=== PATIENT | female | born 1970 | race Caucasian/White ===

== ENCOUNTER 2017-08-01 09:48 | Inpatient (IN) | payer BC, MEDICAID ==
[~2017-08-01] VITALS: Ht 157.5 cm; Wt 47.0 kg
[2017-08-01] MEDS ORDERED: AMBI12.52 PO (10:01)
[2017-08-01] MEDS ORDERED: ALBU17IN2 INH (10:01)
[2017-08-01] MEDS ORDERED: VICO5TAB16 PO (10:01)
[2017-08-01] MEDS ORDERED: ZOLO100T PO (10:01)
[2017-08-01] MEDS ORDERED: ZYRT10CA PO (10:01)
[2017-08-01] MEDS ORDERED: SERO1TAB2 PO (10:01)
[2017-08-01] MEDS ORDERED: PRIL10PO PO (10:01)
[2017-08-01] MEDS ORDERED: SUCR1TA PO (10:01)
[2017-08-01] MEDS ORDERED: HYDR-3363 PO (10:01)
[2017-08-01] MEDS ORDERED: SERO50TA PO (11:55)
[2017-08-01] MEDS ORDERED: FERR1TAB8 PO (11:55)
[2017-08-01] MEDS ORDERED: OMEP20CA3 PO (11:55)
[2017-08-01] MEDS ORDERED: HYDR-3291 PO (11:55)
[2017-08-01] MEDS ORDERED: HYDR-3713 PO (11:55)
[2017-08-01] MEDS ORDERED: MOM 30ML SUSPENSION UDC PO PRN (12:45)
[2017-08-01] MEDS ORDERED: traZODone 50 MG TAB PO PRN (12:45)
[2017-08-01] MEDS ORDERED: MAALOX 30 ML SUSP *UDC PO PRN (12:45)
[2017-08-01] MEDS ORDERED: ACETAMINOPHEN TAB 650MG DOSE (2X325MG) PO PRN (12:45)
[2017-08-01 14:29] VITALS: BP 111/68
[2017-08-01] MEDS: CETIRIZINE (ZyrTEC) 10 MG TAB PO SCH (16:08)
[2017-08-01] MEDS: NORCO, ANEXSIA 5/325MG TABLET (HYDROcodone/ACETAMINOPHEN) PO PRN ×2 (17:16→23:14)
[2017-08-01 18:00] VITALS: BP 97/51
[2017-08-01] MEDS: FERROUS SULFATE 325MG TAB PO SCH (21:36)
[2017-08-01] MEDS: QUEtiapine FUMARATE 100 MG TAB PO SCH (23:14)
[2017-08-01] MEDS: zolPIDEM CR 6.25MG TABLET (AMBIEN CR) PO SCH (23:14)
[2017-08-02] MEDS: NORCO, ANEXSIA 5/325MG TABLET (HYDROcodone/ACETAMINOPHEN) PO PRN ×3 (06:18→18:23)
[2017-08-02 06:53] VITALS: BP 91/50
[2017-08-02] MEDS: QUEtiapine FUMARATE 50 MG TAB PO SCH (08:17)
[2017-08-02] MEDS: SERTRALINE 100 MG TAB PO SCH (08:17)
[2017-08-02] MEDS: OMEPRAZOLE 20 MG CAP PO SCH (08:17)
[2017-08-02] MEDS: FERROUS SULFATE 325MG TAB PO SCH ×2 (08:18→20:11)
[2017-08-02] MEDS: hydrOXYzine 25 MG TAB PO PRN ×4 (08:18→20:11)
[2017-08-02] MEDS: CETIRIZINE (ZyrTEC) 10 MG TAB PO SCH (08:18)
[2017-08-02] MEDS ORDERED: SERTRALINE HCL 25 MG TABLET PO SCH (09:00)
[2017-08-02] MEDS ORDERED: SERTRALINE HCL 50 MG TAB PO SCH (09:00)
--- NOTE | 2017-08-02 10:22 | HPEPDOC ---
[facility] Medical History & Physical Date of Admission Aug 01, 2017 History and Physical PCP: Dr Hugo DEGROOT ATTENDING: Dr. Pawan Victor HPI: 47yoF transferred from [facility] admitted to [facility] for unspecified depressive disorder, being medically examined today. Patient is a poor historian with rambling and tangential speech. Pt has G tube, is on tube feeds. Apparently was recently admitted to SNF x 10 days, discharged 2 days prior to this admission. As per [facility] records, it was unclear if pt had been taking her feedings recently. Denies any fevers, chills, weakness, fatigue, BARROSO, CP, SOB, cough, palpitations, abdominal pain, N/V/D or changes in bowel or bladder habits. PMHx: Asthma Depression Anxiety Bipolar disorder BPD History of SI Self-mutilation PTSD agoraphobia Insomnia Chronic pain GERD Iron deficiency anemia Anorexia/cachexia/feeding tube Substance use Edentulous Td within 5 years as per [facility] records. H/O abnormal TFT. Nml Cortrosyn stim test. PSHX: History of gastric bypass 2014. Dr Sequeira. Developed loss of appetite and inability to eat. EGD 06/09 Gastritis. 2 G-tube 07/10 ORIF hand SOCHX: Resides in: [facility] Marital Status: Significant other Kids: 3 Employment: Unemployed Tobacco use: Denies ETOH: Patient states "I don't know, I don't remember" Illicit Drugs: Patient states "apparently cocaine, I don't know. I've been clean for 10 years." IV Drug Use: Denies Tattoos done unprofessionally: Denies FAMHX: Mother: Alive, well Father: Unknown Siblings: One sister Alive, unknown Children: Alive, well Unexpected deaths due to medical reasons: None. ROS: As noted in HPI, otherwise 11pt ROS of systems reviewed and remarkable only for LMP unknown. PE: GEN: 47 yo F, appears older than age. Thin appearing, unkept. No acute distress. Alert and oriented x 3. Rambling, tangential speech. HEENT: Normocephalic, atraumatic. Pupils are equal, round, and reactive to light. Extraocular movements are intact. No nystagmus appreciated. Sclera are nonicteric. Conjunctiva without injection. Nose midline. Nasal turbinates without bogginess. EACs both patent BL. TMs both visualized and clarke with good cone of light, no bulging or erythema. No facial asymmetry. Moist mucous membranes. Edentulous. Pharynx pink and moist, no cobblestoning. Neck supple, trachea midline. No lymphadenopathy or thyromegaly appreciated. CHEST: Regular rate and rhythm, +S1, +S2 LUNGS: Clear to auscultation bilaterally. No wheezes, rales, or rhonchi. Breathing appears symmetric and easy. Patient is speaking in full sentences. No accessory muscle use. ABD: Flat, soft, non-tender, non-distended. +Bowel sounds throughout. No rebound or guarding. No costovertebral angle tenderness. G-tube present. EXT: Pulses 2+ bilaterally dorsalis pedis and radial. No lower extremity edema appreciated. SKIN: [place], dry, warm. Capillary refill <2sec. No rashes. Superficial lacerations are noted to the right wrist. There is no drainage or erythema around G tube site(pt states she applies Bactroban if needed). NEURO: Alert and oriented x 3. Cranial nerves III-XII are intact. No focal deficits appreciated. [facility] Hcg neg LA 1.2 Mag 1.9 Phos 4.9 WBC 6.8 Hgb 9.8 Hct 30.2 Plt 468 Gluc 79 BUN 7 Scr 0.36 Na 136 K 3.6 Cl 98 AST 47 ALT 23 RPR non reactive TSH 0.992 UA unremarkable EKG: ST 109bpm. CXR NAD TOXICOLOGY: remarkable for cocaine, opiates, ETOH 0.161. A&P: 47yoF transferred from [facility] admitted to [facility] for unspecified depressive disorder 1. Psych. Plan per Psychiatry. EKG on file. 2. History of bariatric surgery/Cachexia/poor nutrition/G-tube. Request daily weights. Monitor intake/output. Request nutrition consult. Continue with Jevity as per previous recommendations pending nutrition consult. Feedings are monitored by staff. 3. GERD. Continue PPI. 4. Follow up with PCP on discharge. 5. Substance use. Per psychiatry. 6. Superficial lacerations right wrist. Dry dressing. Apply Bactroban twice a day. Monitor. 7. Iron deficiency anemia. Continue iron supplement. Recheck CBC. 8. Chronic pain. Continue hydrocodone. 9. Allergic rhinitis. Continue Zyrtec 10 mg daily. 10. Asthma. Continue albuterol 2 puffs every 4 hours as needed. 11. Abnormal LFT. Recheck CMP. 12. Staff member Samia present throughout exam. Vital Signs Vital Signs Date Time Temp Pulse Resp B/P (MAP) Pulse Ox O2 Delivery O2 Flow Rate FiO2 08/02/17 08:42 Room Air 08/02/17 06:53 97.7 85 16 91/50 (64) 08/01/17 14:29 97 Home Medications Scheduled Cetirizine HCl (Zyrtec Allergy) 10 Mg Cap, 10 MG PO DAILY Ferrous Sulfate (Ferrous Sulfate) 325 Mg Tab, 325 MG PO BID Hydrocortisone Base (Hydrocortisone) 10 Mg Tab, 10 MG PO BID Omeprazole (Omeprazole) 20 Mg Cap, 40 MG PO DAILY Quetiapine Fumarate (Seroquel) 300 Mg Tab, 300 MG PO QHS Quetiapine Fumerate (Seroquel) 50 Mg Tab, 50 MG PO QAM Sertraline Hcl (Zoloft) 100 Mg Tab, 100 MG PO DAILY Scheduled PRN Acetaminophen/Hydrocodone (Hydrocodone/Acetaminophen 5-325 mg) 1 Tab Tab, 1 TAB PO Q6H PRN for PAIN MDD 4 Albuterol Sulfate (Proventil Hfa) 167 Puff/6.7 Gm Aers, 2 PUFFS INH Q4HP PRN for SHORTNESS OF BREATH Hydroxyzine HCl (Hydroxyzine HCl) 25 Mg Tab, 25 MG PO Q6H PRN for ANXIETY Zolpidem Tartrate (Ambien Cr) 12.5 Mg Tab, 12.5 MG PO QHS PRN for INSOMNIA Allergies Coded Allergies: No Known Allergies (Unverified , 08/01/17) Opal Moses Aug 02, 2017 10:22
[2017-08-02] MEDS: MUPIROCIN 2% OINT 22 GM TUBE TOP PRN (12:53)
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
[2017-08-02 18:00] VITALS: BP 83/51
[2017-08-02] MEDS: QUEtiapine FUMARATE 100 MG TAB PO SCH (22:38)
[2017-08-03] MEDS: zolPIDEM CR 6.25MG TABLET (AMBIEN CR) PO SCH ×2 (00:42→22:17)
[2017-08-03] MEDS: NORCO, ANEXSIA 5/325MG TABLET (HYDROcodone/ACETAMINOPHEN) PO PRN ×4 (00:43→20:05)
[2017-08-03 06:00] VITALS: BP 95/64
[2017-08-03] MEDS: QUEtiapine FUMARATE 50 MG TAB PO SCH (08:17)
[2017-08-03] MEDS: hydrOXYzine 25 MG TAB PO PRN ×3 (08:17→18:45)
[2017-08-03] MEDS: SERTRALINE 100 MG TAB PO SCH (08:18)
[2017-08-03] MEDS: FERROUS SULFATE 325MG TAB PO SCH ×2 (08:18→20:05)
[2017-08-03] MEDS: OMEPRAZOLE 20 MG CAP PO SCH (08:18)
[2017-08-03] MEDS: CETIRIZINE (ZyrTEC) 10 MG TAB PO SCH (08:19)
[2017-08-03 08:31] LABS: MEAN CORPUSCULAR HEMOGLOBIN 28.7 pg (27.0-33.0); MEAN CORPUSCULAR HGB CONC 31.6 g/dl (32.0-36.5); MEAN CORPUSCULAR VOLUME 90.8 fl (80.0-96.0); RED CELL DISTRIBUTION WIDTH 15.9 % (11.5-14.5); WHITE BLOOD COUNT 5.8 10^3/uL (4.0-10.0)
[2017-08-03 09:05] LABS: ALBUMIN 2.9 GM/DL (3.2-5.2); ALBUMIN/GLOBULIN RATIO 0.66 (1.00-1.93); ALKALINE PHOSPHATASE 174 U/L (45-117); ALT/SGPT 25 U/L (12-78); ANION GAP 6 MEQ/L (8-16); AST/SGOT 36 U/L (15-37); BILIRUBIN,TOTAL 0.2 MG/DL (0.2-1.0); BLOOD UREA NITROGEN 12 MG/DL (7-18); CARBON DIOXIDE LEVEL 28 MEQ/L (21-32); CHLORIDE LEVEL 108 MEQ/L (98-107); CREATININE FOR GFR 0.38 MG/DL (0.55-1.02); GLOMERULAR FILTRATION RATE > 60.0 (>58); GLUCOSE, FASTING 88 MG/DL (70-105); MAGNESIUM LEVEL 1.8 MG/DL (1.8-2.4); PHOSPHORUS LEVEL 4.1 MG/DL (2.5-4.9); POTASSIUM SERUM 3.4 MEQ/L (3.5-5.1); SODIUM LEVEL 142 MEQ/L (136-145); TOTAL PROTEIN 7.3 GM/DL (6.4-8.2)
[2017-08-03] MEDS ORDERED: POTASSIUM CHLORIDE 10 MEQ SR TABLET PO ONE (11:00)
[2017-08-03 11:18] LABS: PERCENT SATURATION 29.2 % (13.2-45.0)
[2017-08-03 11:29] LABS: FOLATE 17.5 NG/ML (>5.4)
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
[2017-08-03] MEDS: MUPIROCIN 2% OINT 22 GM TUBE TOP PRN (17:04)
[2017-08-03 18:00] VITALS: BP 92/54
[2017-08-03] MEDS: QUEtiapine FUMARATE 100 MG TAB PO SCH (22:16)
[2017-08-04] MEDS: NORCO, ANEXSIA 5/325MG TABLET (HYDROcodone/ACETAMINOPHEN) PO PRN ×2 (02:21→08:47)
[2017-08-04 06:32] VITALS: BP 101/58
[2017-08-04 08:00] LABS: ANION GAP 7 MEQ/L (8-16); BLOOD UREA NITROGEN 11 MG/DL (7-18); CALCIUM LEVEL 8.3 MG/DL (8.5-10.1); CARBON DIOXIDE LEVEL 27 MEQ/L (21-32); CHLORIDE LEVEL 109 MEQ/L (98-107); CREATININE FOR GFR 0.35 MG/DL (0.55-1.02); GLOMERULAR FILTRATION RATE > 60.0 (>58); GLUCOSE, FASTING 74 MG/DL (70-105); POTASSIUM SERUM 3.8 MEQ/L (3.5-5.1); SODIUM LEVEL 143 MEQ/L (136-145)
[2017-08-04] MEDS: OMEPRAZOLE 20 MG CAP PO SCH (08:41)
[2017-08-04] MEDS: CETIRIZINE (ZyrTEC) 10 MG TAB PO SCH (08:42)
[2017-08-04] MEDS: SERTRALINE 100 MG TAB PO SCH (08:42)
[2017-08-04] MEDS: QUEtiapine FUMARATE 50 MG TAB PO SCH (08:43)
[2017-08-04] MEDS: FERROUS SULFATE 325MG TAB PO SCH (08:43)
[2017-08-04 08:47] VITALS: BP 104/54
[2017-08-04] MEDS: MUPIROCIN 2% OINT 22 GM TUBE TOP PRN (08:49)
[2017-08-04] MEDS ORDERED: TRAZO50TA PO (09:22)
[2017-08-04] MEDS ORDERED: FERR1TAB8 PO (09:22)
[2017-08-04] MEDS ORDERED: OMEP20CA3 PO (09:22)
[2017-08-04] MEDS ORDERED: Sertraline Hcl PO (09:22)
[2017-08-04] MEDS ORDERED: HYDR-3363 PO (09:22)
[2017-08-04] MEDS ORDERED: NORCOTAB PO (09:22)
[2017-08-04] MEDS ORDERED: CETI10TA PO (09:22)
[2017-08-04] MEDS ORDERED: QUET1TAB8 PO (09:22)
[2017-08-04] MEDS ORDERED: AMBI6.25 PO (09:22)
[2017-08-04] MEDS ORDERED: QUET5TAB PO (09:22)
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
== END 2017-08-04 12:30 | disposition home or self-care (01) | DRG 775 ==
LOC: M ED 09:48 → M ED INP 12:32 → M PSY 13:30
PROVIDERS: ADMIT Psychiatry & Neurology Psychiatry; ATTEND Psychiatry & Neurology Psychiatry
DX: F19.94 Other psychoactive substance use, unspecified with psychoactive substance-induced mood disorder (principal); R45.851 Suicidal ideations; F10.10 Alcohol abuse, uncomplicated; Z93.1 Gastrostomy status; Z79.899 Other long term (current) drug therapy; F41.9 Anxiety disorder, unspecified; K21.9 Gastro-esophageal reflux disease without esophagitis; G47.00 Insomnia, unspecified; D50.9 Iron deficiency anemia, unspecified; G89.29 Other chronic pain; F40.00 Agoraphobia, unspecified; J45.909 Unspecified asthma, uncomplicated; Z98.84 Bariatric surgery status